=== PATIENT | male | born 1990 | race Caucasian/White ===

== ENCOUNTER 2016-08-25 01:04 | Emergency (ER) | payer OTHER ==
[~2016-08-25] VITALS: Ht 172.7 cm; Wt 96.7 kg
[~2016-08-25 01:04] MED LIST: FLEXERIL5 MG PO; IBUPROFEN600 MG PO; INDOCIN25 MG PO; MOTRIN600 MG PO; NOHOMEMEDS; NORCO 7.5/321 TABLET PO; PEN-VEE K,VEET500 MG PO
[2016-08-25 03:05] VITALS: BP 147/97
== END 2016-08-25 03:06 | disposition home or self-care (01) ==
LOC: EXP 01:04 → EME 01:04 → EXP 03:06
DX: S09.90XA Unspecified injury of head, initial encounter (principal); W22.03XA Walked into furniture, initial encounter; R51 Headache
CPT/HCPCS: 99281; 99284; J1885

== ENCOUNTER 2016-11-19 13:50 | Emergency (ER) | payer OTHER ==
[~2016-11-19] VITALS: Ht 170.2 cm; Wt 94.7 kg
[2016-11-19] MEDS ORDERED: FLEXERIL10 MG PO (16:24)
[2016-11-19] MEDS ORDERED: MOTRIN800 MG PO (16:24)
[2016-11-19 16:53] VITALS: BP 149/83
== END 2016-11-19 16:54 | disposition home or self-care (01) ==
LOC: EME 13:50
DX: S16.1XXA Strain of muscle, fascia and tendon at neck level, initial encounter (principal); S29.012A Strain of muscle and tendon of back wall of thorax, initial encounter; V48.0XXA Car driver injured in noncollision transport accident in nontraffic accident, initial encounter
CPT/HCPCS: 70450; 72040; 72070; 81003; 99281; 99284

== ENCOUNTER 2017-03-03 18:13 | Emergency (ER) | payer OTHER ==
[~2017-03-03] VITALS: Ht 172.7 cm; Wt 95.8 kg
[~2017-03-03 18:13] MED LIST changes: +FLEXERIL10 MG PO; +MOTRIN800 MG PO
[2017-03-03 18:45] LABS: HEMATOCRIT 44.5 % (38.0-50.0); MCH 31.2 PG (29.0-34.0); MCHC 35.3 G/DL (30.0-36.0); MCV 88.3 FL (86-99); MEAN PLAT.VOLUME 10.4 uM^3 (9.0-12.4); PLATELET COUNT 200 K/uL (156-360); RBC DIS.WIDTH-CV 12.1 % (11.8-14.6); RBC DIS.WIDTH-SD 38.9 % (39-53); RED BLOOD COUNT 5.04 M/uL (4.00-5.50); WHITE BLOOD COUNT 8.7 K/uL (4.1-10.2)
[2017-03-03 18:55] LABS: CHLORIDE 103 mEq/L (99-109); POTASSIUM 3.9 mEq/L (3.7-5.4)
[2017-03-03 18:56] LABS: SODIUM 139 mEq/L (136-147)
[2017-03-03 18:57] LABS: GLUCOSE 104 mg/dL (70-99)
[2017-03-03 18:59] LABS: ANION GAP 9 MEQ/L (2-14)
[2017-03-03 19:01] LABS: GFR ESTIMATE (CALCULATED) > 59 mL/min/
[2017-03-03 19:02] LABS: UREA NITROGEN (BUN) 14 mg/dL (9-23)
[2017-03-03 19:07] LABS: TROP-I INTERPRETATION NEGATIVE; TROPONIN-I < 0.01 ng/mL (0.0-0.30)
[2017-03-03] MEDS ORDERED: NAPROSYN500 MG PO (20:31)
[2017-03-03 20:57] VITALS: BP 127/72
== END 2017-03-03 20:58 | disposition home or self-care (01) ==
LOC: EME 18:13 → EXP 18:13
DX: R07.9 Chest pain, unspecified (principal)
CPT/HCPCS: 71020; 80048; 84484; 85027; 93005; 99281; 99284